=== PATIENT | male | born 1995 | race Caucasian/White ===

== ENCOUNTER 2019-03-04 11:17 | Day surgery (SDC) | payer MEDICAID, OTHER ==
[2019-03-04] VITALS (11 sets, daily range): BP systolic 125–155; BP diastolic 67–90; PULSE 71–100; RESP 16–51; Ht 165.1 cm; Wt 88.6 kg
[~2019-03-04] VITALS: Ht 165.1 cm; Wt 88.6 kg
[~2019-03-04 11:17] MED LIST: CEFAZOLIN 1 GM INJ ONE; DEXAMETHASONE 4 MG/ML 5 ML INJ ONE; FENTAnyl 50 MCG/ML VIAL ONE; GLYCOPYRROLATE 0.4 MG INJ ONE; MIDAZOLAM 1 MG/ML 2 ML INJ ONE; NEOSTIGMINE 3 MG/3 ML SYRINGE ONE; ONDANSETRON 4 MG INJ ONE; PROPOFOL 20 ML ONE; ROCURONIUM 50 MG INJ ONE; ROPIVACAINE 0.5 % 30 ML VIAL ONE
[2019-03-04] MEDS ORDERED: SUGAMMADEX SODIUM 200 MG/2 ML VIAL IV ONE ×2 (12:13→14:57)
[2019-03-04] MEDS ORDERED: ROPIVACAINE 0.5 % 30 ML VIAL ONE ×2 (12:14→12:58)
[2019-03-04] MEDS ORDERED: LACTATED RINGER'S 1,000 ML IV SCH ×2 (12:30→18:30)
--- NOTE | 2019-03-04 12:51 | PREAC ---
Date/Time of Note Date/Time of Note DATE: 03/04/19 TIME: 12:47 Anesthesia Eval and Record Evaluation Time Pre-Procedure Interview DATE: 03/04/19 TIME: 12:47 Age 23 Sex male NPO: 8 hrs Preoperative diagnosis LEFT ANKLE TALUS OSTEOCHONDRAL DEFECT Planned procedure LEFT ANKLE SCOPE, EXTENSIVE DEBRIDEMENT, MICROFRACTURE OR DRILLING OF OSTEOCHONDRITIS DISSECANS TALUS Past Medical History Past Medical History: Includes GI: Obesity Surgery & Anesthesia Issues No known issue Meds Anticoagulation: No Beta Gage within 24 hr: No Reason Beta Gage not given: Pt. not on B-Gage No Active Prescriptions or Reported Meds Current Medications Lactated Ringer's 1,000 ml @ 60 mls/hr [id number] IV Last administered on 03/04/19at 12:19; Admin Dose 60 MLS/HR; Start 03/04/19 at 12:30 Meds reviewed: Yes Allergies Coded Allergies: No Known Allergy (Unverified , 03/04/19) Allergies Reviewed: Yes Labs/Studies Labs Reviewed: Reviewed by anesthesiologist test: N/A Pre-procedure Exam Last vitals Vital Signs Date Temp Pulse Resp B/P (MAP) Pulse Ox O2 O2 Flow FiO2 Time Delivery Rate 03/04/19 98.5 71 16 125/77 97 Room Air 12:13 (93) Airway: Adequate mouth opening, Adequate thyromental dist Mallampati: Mallampati II Teeth: Normal Lung: Normal Heart: Normal ASA Physical Status ASA physical status: 2 Emergency: None Planned Anesthetic General/MAC: ETT Nerve block: Femoral, Sciatic (left) Planned Pain Management Single shot nerve block, Parenteral pain med Pre-operative Attestations Prior to commencing anesthesia and surgery, the patient was re-evaluated, there was verification of: *The patient's identity *The results of appropriate recent lab work and preoperative vital signs *The above evaluation not changing prior to induction *Anesthetic plan, risk benefits, alternative and complications discussed with patient/family; questions answered; patient/family understands, accepts and wishes to proceed. David Concepcion M.D. Mar 04, 2019 12:51
[2019-03-04] MEDS ORDERED: POLYMYXIN/BACITRACIN 1L IRRIG ONE (12:58)
[2019-03-04] MEDS ORDERED: NEOMYC/POLYMYX/BACIT 30 GM OINT ONE (12:58)
[2019-03-04] MEDS ORDERED: SODIUM CL BACTERIOSTATIC 30 ML INJ ONE (13:32)
[2019-03-04] MEDS ORDERED: HEPARIN 1000 UNITS/ML 10 ML INJ ONE (13:32)
[2019-03-04] MEDS ORDERED: IOHEXOL 300MG/ML 30 ML BTL ONE (13:32)
[2019-03-04] MEDS ORDERED: FENTAnyl 50 MCG/ML VIAL ONE (15:21)
[2019-03-04] MEDS ORDERED: THROMBIN(HUM PLAS)/FIBRINOG/CA 5 ML VIAL TOP ONE (15:23)
--- NOTE | 2019-03-04 18:16 | PAC ---
Date/Time of Note Date/Time of Note DATE: 03/04/19 TIME: 18:16 Post-Anesthesia Notes Post-Anesthesia Note Last documented vital signs Vital Signs Date Temp Pulse Resp B/P (MAP) Pulse Ox O2 O2 Flow FiO2 Time Delivery Rate 03/04/19 98.5 71 16 125/77 97 Room Air 12:13 (93) Activity: WNL Respiratory function: WNL Cardiovascular function: WNL Mental status: Baseline Pain reasonably controlled: Yes Hydration appropriate: Yes Nausea/Vomiting absent: Yes MURPHY RIVERA Mar 04, 2019 18:16
[2019-03-04] MEDS ORDERED: FENTAnyl 50 MCG/ML VIAL IV PRN ×2 (18:30)
[2019-03-04] MEDS ORDERED: METOCLOPRAMIDE 10 MG INJ IV PRN (18:30)
[2019-03-04] MEDS ORDERED: hydrALAzine 20 MG INJ IV PRN (18:30)
[2019-03-04] MEDS ORDERED: HYDROmorphONE 1 MG/5 ML IV SYRINGE IV PRN (18:30)
[2019-03-04] MEDS ORDERED: MEPERIDINE 25 MG INJ IV PRN (18:30)
[2019-03-04] MEDS ORDERED: LABETALOL HCL 20MG INJ IV PRN (18:30)
--- NOTE | 2019-03-04 18:40 | OPR ---
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 Left ankle anterior lateral talar dome osteochondral lesion with cystic component Left ankle talar bone marrow edema lesion with subchondral insufficiency Operation/Procedure Performed Left ankle arthroscopy with extensive debridement left ankle arthroscopy with Debridement and microfracture of osteochondral defect of lateral talar dome Left ankle arthroscopy with application of autograft and allograft to osteochondral defect of lateral talar dome mixed with bone marrow aspirate concentrate Left ankle arthroscopic interosseous bio plasty with application of allograft mixed with bone marrow aspirate concentrate Crawford of iliac crest bone marrow autograft from left iliac crest Left iliac crest bone marrow aspirate concentrate harvest Left ankle Brostrom Mnoson lateral ankle ligament reconstruction with application of platelet rich plasma Surgeon Kali Cooley MD [employer] Packer [employer] None Anesthesia Type: general, other (Popliteal and adductor block) Anesthesiologist: David Concepcion M.D. Tourniquet Time: 130 minutes at 250 mmHg Estimated Blood Loss: 0 - 10 ml's Transfusion none Specimen None Grafts/Implants Arthrex internal brace Arthrex Allosync pure, Biocartilage, Stew BMAC and PRP spun at 2% hematocrit Complications none Pt Condition Post Procedure: stable Disposition: PACU Indications Patient is a 23-year-old male with ongoing pain in his ankle as well as chronic lateral ankle ligament instability that has been resistant to improvement with physical therapy and nonoperative management. Given CT and MRI confirming large osteochondral lesion with cystic component as well as chronic lateral ankle ligament instability patient indicated for surgery. Risk Note: Patient was explained the risks and benefits of surgery and the patient's ewiiaapaayp language including not limited to infection, bleeding, injury to blood vessels, nerves, ligaments or tendons. Risks of anesthesia, deep vein thrombosis and need for reduce future surgery. Patient acknowledged these risk by signing the surgical consent form. Procedure Description The patient had the correct operative site marked in the preoperative holding area and confirmed with both patient and patient's consent. The patient was brought back in the operative theater, placed supine on the operating table and given regional block anesthesia. The patient was then given 2 g of Ancef preoperatively. Patient was then given preoperative antibiotics. The hip, leg and ankle were then prepped and draped in normal sterile fashion. A timeout was taken and all parties in the room agreed it was the correct patient, correct extremity and correct procedure. Attention was initially turned to the left iliac crest where a small stab incision was made just proximal to the anterior superior iliac spine. Using a Jamshidi needle approximately 90 cc of bone marrow aspirate was extracted from the iliac crest and sent off for certification. Following this using a size 6 Acumed bone graft harvester several cc of bone autograft was then harvested from the iliac crest. The wound was then irrigated and closed with a 4-0 Monocryl and Steri-Strips. Tourniquet placed on the operative extremity thigh sterilely. The thigh was secured onto the thigh roach, flexed and all areas were carefully padded with popliteal fossa spared to avoid any compression. The superficial peroneal nerve branch was marked out. A soft tissue distraction strap was applied across the ankle and a soft tissue dissection was then placed across the ankle at approximately 30 pounds of force. Attention was then turned to the ankle joint and using a typical anterior me dial, posterior lateral and anterolateral portal with care to avoid injury to the neurovascular structures. A 21 point ankle exam was completed revealing significant anterior lateral and medial synovitis with lateral and medial gutter synovitis and scar tissue formation. There was a hemorrhagic nodule seen in the lateral gutter as well as evidence of anterior tibial osteophyte overhang. The significant amount of scar tissue was thoroughly debrided in the lateral and posterior gutter. The lateral and posterior gutter showed extensive scar tissue that was debrided as well as anterolateral synovitis scarring. A osteochondral lesion of the anterior lateral talar dome was identified and curetted and debrided. There was extensive cystic formation found underneath the surface and the entire lesion measures approximately 10 x 6 x 2 mm in depth. Water was turned off and the field was dried. Under arthroscopic visualization the remainder of the cystic membranes were removed and then interosseous bio plasty was performed with a 3 mm Jamshidi that was then placed under fluoroscopic guidance and shown to be in the proper position and then I will see pure mixed with bone marrow aspirate concentrate was then placed into the talar dome. The autograft was then placed at the osteochondral defect followed by biocartilage that had been mixed with bone marrow aspirate concentrate. EviSeal fibrin glue was then placed over the top of the biocartilage. The joint was held in traction for approximately 7 minutes while the glue hardened. All wounds were closed with 4-0 nylon in vertical mattress fashion. The ankle was then reprepped and redraped with the thigh roach removed with significant care to maintain sterility. All gloves and instruments were changed and new draping was used. Esmarch was brought up and tourniquet was taken to 250 mmHg. An incision was made from several centimeters above the fibula and carried inferior to the sinus Tarsi. This was carried down through the subcutaneous tissues and a 3-0 undyed Vicryl was used to retract the skin. Care was taken at all times to avoid injury to neurovascular structures. The extensor retinaculum was freed up with extensive adherence to the ATFL and CFL. We then identified the peroneal tendons. There was no peroneal tenosynovitis of brevis or longus which did not require debridement. Tendons were intact with no tears found. The interval between the anterior inferior tibial fibular ligament and the anterior talofibular ligament was identified. A clamp was placed into this interval underneath the anterior talofibular ligament. Using electrosurgery cautery the anterior talofibular was released. This left a cuff of tissue on the fibula. The calcaneofibular ligament was intact. There is a significant anterior drawer, with all ligaments released. Lateral gutter was again examined and all frayed areas as well as frayed chondral surface on the lateral aspect of the calcaneus with a loose bony debris and chondral fraying and scarring in the lateral gutter and just proximal to the subtalar are that was clearly debrided. Internal Brace was then placed in to the talus the ATFL attachment and confirmed to be int he correct position on fluoroscopy. 2 Fibertake with Fiber wire then place into the fibula in the correct anatomic position. Then a #0 FiberWire was placed in a pants over vest fashion to reattach remaining portion of the anterio r talofibular ligament from posterior to anterior. Final stitch anteriorly with 2-0 PDS followed by a second stitch along the anterior aspect of the lateral gutter and capsule closed with a 2-0 PDS in a pants over vest fashion. A posterior drawer was applied to the ankle and a blanket was rolled up underneath the tibia to allow gravity to reduce the ankle in neutral dorsiflexion and plantarflexion and inversion and eversion. A 3-0 PDS was then placed to close the peroneal retinaculum. The sutures were then subsequently tied in sequential fashion from posterior to anterior. Excellent stability was obtained. An anterior drawer was eliminated and ankle have normal range of motion. The wounds were then irrigated again with an leg solution and his retinaculum was reefed and advanced proximally over vest fashion with 3-0 PDS. Wounds were irrigated thoroughly and closed with 3-0 Vicryl followed by 3-0 Monocryl followed by a 3-0 nylon in a vertical mattress fashion. The wound was then covered with Steri-Strips and the ligaments were then injected with platelet rich plasma spine at 6% hematocrit Platelet poor plasma was placed on the wound dressing. A compression dressing was applied with Xeroform, 4 x 4's and ABDs and the patient was placed into a short leg splint in neutral position. Patient tolerated procedure well and taken to recovery room in stable condition on a leg wedge pillow. At the end of the procedure, all sponge and needle counts were correct. In the PACU all sponge and needle counts were correct. Modifier 22 note: Given the need to add additional autograft to the case and the extensive cystic nature of the osteochondral lesion case should be awarded a moderate modifier 22 given that this required an extra 60 minutes of time and an extensively greater degree of complexity to both harvest the bone graft as well as add bone graft to the chondral site in order to enable a greater degree of healing at the site of the osteochondral defect. KALI COOLEY MD Mar 04, 2019 18:40
[2019-03-04] MEDS: ONDANSETRON 4 MG INJ IV PRN ×2 (18:46→20:07)
[2019-03-04] MEDS: HYDROmorphONE 1 MG/5 ML IV SYRINGE IV PRN ×2 (18:46→19:31)
[2019-03-04] MEDS ORDERED: morphine 2 MG INJ IV PRN (19:00)
--- NOTE | 2019-03-04 20:17 | PN ---
Date/Time of Note Date/Time of Note DATE: 03/04/19 TIME: 19:09 Assessment/Plan Lines/Catheters IV Catheter Type (from Nrsg): Peripheral IV Assessment/Plan Assessment/Plan Patient with post op Biceps strain on the right secondary to trying to fight himself in the OR and now with all pain resolving with full flexion and extension of bilateral elbows at this time. Subjective 24 Hr Interval Summary Patient seen in the PACU post op complaining on Bilateral elbow pain. He reports his left shoulder and elbow pain have resolved, but he has some pain still to the right elbow at the biceps tendon. Of note the patient the fighting when he awoke from anesthesia and was trying to punch himself in the face and scratch his eyes. Both nurses were gently restraining him and preventing him from hurting himself and possibly scratching his cornea. Denies any numbness or tingling. Feeling better over the course of the hour in recovery Exam/Review of Systems Vital Signs Vitals Vital Signs Date Temp Pulse Resp B/P (MAP) Pulse Ox O2 O2 Flow FiO2 Time Delivery Rate 03/04/19 98.5 71 16 125/77 97 Room Air 12:13 (93) Exam Constitutional: alert, oriented, well developed Musculoskeletal: other (RUE/ slight ttp over the biceps insertion with No swelling or ecchymosis. Patient has full wrist flexion extension able to elevate his shoulder. He has no pain with elbow extension and pain over the biceps insertion with elbow flexion. He has sensation intact light touch over the volar index finger, volar small finger and first dorsal webspace as well as lateral antebrachial cutaneous nerve and lateral deltoid.) ROSEY COOLEY MD Mar 04, 2019 19:57
--- NOTE | 2019-03-05 16:46 | HPN ---
Date/Time of Note Date/Time of Note DATE: 03/04/19 TIME: 12:46 Interval H&P Admission Note Pt. seen H&P reviewed: No system changes ROSEY COOLEY MD Mar 05, 2019 16:46
== END 2019-03-04 20:30 | disposition home or self-care (01) ==
LOC: SDS 11:17
PROVIDERS: ATTEND Orthopaedic Surgery
DX: M25.372 Other instability, left ankle (principal); M94.8X7 Other specified disorders of cartilage, ankle and foot
CPT/HCPCS: 29891; 29898; 73610; 82306; C1713; C9250; J0690; J1100; J1170; J1644; J2250; J2405; J2795; J3010; Q9967; Z7512; Z7610; J2710